=== PATIENT | female | born 1960 | race Two or more races ===

== ENCOUNTER 2020-07-23 11:45 | Outpatient (CLI) | payer OTHER | END 2020-07-23 11:59 | disposition home or self-care (01) | LOC: RAD 11:45 | PROVIDERS: ATTEND Physical Medicine & Rehabilitation | DX: M75.101 Unspecified rotator cuff tear or rupture of right shoulder, not specified as traumatic (principal); M75.31 Calcific tendinitis of right shoulder ==

== ENCOUNTER 2023-04-22 08:18 | Outpatient (CLI) | payer OTHER | END 2023-04-22 08:28 | disposition home or self-care (01) | LOC: TOM 08:18 | PROVIDERS: ATTEND Specialist | DX: K43.9 Ventral hernia without obstruction or gangrene (principal) ==

== ENCOUNTER 2023-05-24 05:50 | Day surgery (SDC) | payer OTHER ==
[~2023-05-24] VITALS: Ht 157.5 cm; Wt 99.8 kg
== END 2023-05-24 13:30 | disposition home or self-care (01) ==
LOC: CIR.AMB 05:50
PROVIDERS: ATTEND Specialist
DX: K43.9 Ventral hernia without obstruction or gangrene (principal); E03.9 Hypothyroidism, unspecified; I10 Essential (primary) hypertension; Z20.822 Contact with and (suspected) exposure to COVID-19